=== PATIENT | female | born 1995 | race Asian ===

== ENCOUNTER 2019-01-30 06:17 | Day surgery (SDC) | payer OTHER ==
[2019-01-26 11:48] VITALS: BMI 23.0
[2019-01-30] MEDS ORDERED: MIDAZOLAM HCL 2 MG/2 ML SINGLE DOSE VIAL ONE (06:55)
[2019-01-30] MEDS ORDERED: BUPIVACAINE LIPOSOME/PF (EXPAREL) 266 MG/20 ML VIAL ONE (06:56)
[2019-01-30] MEDS ORDERED: VANCOMYCIN 1,000 MG VIAL (RESTRICTED TO ID ONLY) ONE (07:07)
--- NOTE | 2019-01-30 07:15 | HP ---
History & Physical Update - History History: No Change - Physical Physical: No Change - Assessment Assessment: No Change - Plan Plan: No Change (H&P in chart from 01/08/2019)
[2019-01-30] MEDS ORDERED: DEXAMETHASONE SOD PHOSPHATE 4 MG/1 ML VIAL ONE ×2 (07:45→10:26)
[2019-01-30] MEDS ORDERED: ONDANSETRON 4 MG/2 ML VIAL ONE ×2 (07:45→10:26)
[2019-01-30] MEDS ORDERED: SCOPOLAMINE HYDROBROMIDE 1 PATCH PATCH.TD72 ONE (07:46)
[2019-01-30] MEDS ORDERED: PROPOFOL 20 ML ONE ×6 (07:57→09:29)
[2019-01-30] MEDS ORDERED: SUCCINYLCHOLINE CHLORIDE 200 MG/10 ML VIAL ONE (07:57)
[2019-01-30] MEDS ORDERED: TRANEXAMIC ACID 1000 MG/10 ML VIAL ONE ×2 (08:11→09:36)
[2019-01-30] MEDS ORDERED: ceFAZolin SODIUM 1 GM VIAL ONE (08:11)
[2019-01-30] MEDS ORDERED: LIDOCAINE HCL 2% JELLY (5 ML/TUBE) ONE (08:37)
--- NOTE | 2019-01-30 10:33 | OP ---
Operative Note - Note: Operative Date: 01/30/19 Pre-Operative Diagnosis: left knee acl tear Operation: Left knee ACLR Post-Operative Diagnosis: Same as Pre-op Surgeon: Addison Rosa Butadiene Converter Helper: Kelsie Brice Anesthesiologist/CRIPPLE CHASER: Willie Lewis Anesthesia: General Operative Report Dictated: Yes
--- NOTE | 2019-01-30 10:36 | DS ---
Physical Examination Vital Signs: Vital Signs Temperature 98.2 F 01/30/19 06:48 Pulse Rate 66 01/30/19 06:48 Respiratory Rate 18 01/30/19 06:48 Blood Pressure 107/70 01/30/19 06:48 O2 Sat by Pulse Oximetry (%) 99 01/30/19 06:48 Discharge Summary Reason For Visit: LEFT KNEE ANTERIOR CRUCIATE LIGAMENT Condition: Good - Instructions Diet, Activity, Other Instructions: Post Operative Instructions: ACL Reconstruction Dr. Addison Rosa 1. Pain following an ACL reconstruction is variable and can be significant. Some patients will have more pain than others. You have been provided with a prescription for medication that contains a narcotic. You are not allowed to drive while on this medication. You should take Tylenol (Acetaminophen) when taking the pain medication ( it will NOT result in an overdose). Feel free to take medications such as Ibuprofen or Naprosyn in addition to the pain medicine if you do not have any problems with the NSAID class of medications. TAKE 81MG OF ASPIRIN TWICE A DAY FOR TWO WEEKS TO DECREASE BLOOD CLOT RISK 2. You should not remove the bandages unless directed otherwise. You may shower IN 48 HOURS with the leg covered . You are not allowed to bathe or go swimming until the sutures are removed. Put band-aids on the sutures after your shower and do not put any creams or lotions over the incisions. 3. You are allowed to put all your weight on the leg and bend your knee, however , you should use crutches for assistance unless directed otherwise. YOU MUST USE CRUTCHES FOR THE FIRST 3 DAYS BECAUSE OF THE BLOCK 4. Getting the knee straight is your most important goal during the first 72 hours following an ACL reconstruction. Try not to lie down with a pillow under your knee. Instead the pillow should be under your ankle, thus allowing you to push your knee straight down into the bed. This is a very important milestone to achieve before your first post-surgery visit with me. 5. Swelling around the knee is normal following an ACL reconstruction. 6. The area around the knee and along the front of your salguero will also become swollen and black and blue. 7. Apply ice to the knee for 15 min every hour or so. You may continue this for as many days as you like. 8. Please call the office to schedule a visit to have your sutures removed. 9. If for any reason you believe you may have an infection or are concerned, please feel free to call me. I can be reached through our office number 24 hours a day. 10. Please call our office with any questions; we will review the surgical findings during your post operative visit. Disposition: HOME - Home Medications Comprehensive Discharge Medication List: Ambulatory Orders NK [No Known Home Medication] 01/26/19
[2019-01-30] MEDS ORDERED: oxyCODONE HCL 5 MG TABLET PO PRN ×2 (10:40)
[2019-01-30] MEDS ORDERED: ONDANSETRON 4 MG/2 ML VIAL IVPUSH PRN (10:40)
[2019-01-30] MEDS ORDERED: LACTATED RINGERS SOLUTION 1,000 ML IV SCH (10:45)
[2019-01-30 11:09] VITALS: TEMP 97.7
[2019-01-30 12:08] VITALS: BP 108/53; PULSE 79
--- NOTE | 2019-01-30 14:54 | SURG ---
Surgery Keymodule Assembly Machine Tender Note Keymodule Assembly Machine Tender: Kelsie Brice PA-C Date of Service: 01/30/19 Diagnosis: left knee acl tear Procedure: Left knee ACLR I was present for the entirety of the operative procedure. For further detail, please refer to operative report. Visit type - Case Type Case Type: Scheduled - Emergency Emergency Visit: No - New patient This patient is new to me today: Yes Date on this admission: 01/30/19
--- NOTE | 2019-02-03 16:26 | PATH ---
Surgical Pathology Report Patient Name: JULIA GONZALEZ Med. Rec. #: [id number] /Age/Gender: 1995 (Age: 23) / F Account: [id number] [facility] Taken: 01/30/2019 Received: 01/30/2019 Reported: 02/03/2019 Physicians: Addison Rosa M.D. Specimen(s) Received SHAVINGS LEFT KNEE Clinical History Left ACL tear Final Diagnosis KNEE SHAVINGS, LEFT, ACL REPAIR: FRAGMENTS OF BONE, SYNOVIUM, DENSE FIBROCONNECTIVE TISSUE, ADIPOSE TISSUE, AND CARTILAGE. Electronically Signed Ana Lott M.D. Gross Description Received in formalin, labeled "shavings left knee," is a 3.0 x 3.0 x 0.3 cm. aggregate of paredes-yellow soft tissue fragments admixed with blood clot. A community health program representative portion is submitted in one cassette. /02/02/2019 saudi02/02/2019
== END 2019-01-30 11:45 | disposition home or self-care (01) ==
LOC: FASU 06:17
PROVIDERS: ATTEND Orthopaedic Surgery
PROC: 0MRN47Z Replacement of Right Knee Bursa and Ligament with Autologous Tissue Substitute, Percutaneous Endoscopic Approach (ICD-10-PCS; principal; 2019-01-30 08:29)
DX: S83.512A Sprain of anterior cruciate ligament of left knee, initial encounter (principal); X58.XXXA Exposure to other specified factors, initial encounter; Y93.9 Activity, unspecified; Y92.9 Unspecified place or not applicable
CPT/HCPCS: 81025; 88304-TC; 94760